=== PATIENT | female | born 1995 | race American Indian/Alaskan Native ===

== ENCOUNTER 2018-05-21 23:50 | Inpatient (IN) | payer MEDICAID ==
[2018-05-22] MEDS ORDERED: XYLOCAINE 2% INFILTRATI ONE ×2 (01:13→03:11)
[2018-05-22] MEDS ORDERED: ZOFRAN IV PRN ×2 (01:13→05:12)
[2018-05-22] MEDS ORDERED: BRETHINE SUB-Q PRN (01:13)
[2018-05-22] MEDS ORDERED: BRETHINE IVP PRN (01:13)
[2018-05-22] MEDS ORDERED: MINERAL OIL PO PRN (01:13)
--- NOTE | 2018-05-22 01:18 | History and Physical Report ---
History of Present Illness Date of examination: 05/22/18 Date of admission: 05/22/18 00:42 Chief complaint: labor History of present illness: Menstrual History Regularity: irregular Duration: 3-4 LMP: 08/24/2017 LMP reliability: definite LMP character: normal test type: urine test Date: 02/24/2018 EDC Calculations LMP: 05/31/2018 EDC Confirmation: 05/31/2018 Gestational Age: 26 2/7 weeks Past History : 2 Term Births: 0 Premature Births: 0 Living Children: 0 Para: 0 Mult. Births: 0 Prev : 0 Prev. attempt? 0 Aborta: 1 Elect. Ab: 1 Spont. Ab: 0 Ectopics: 0 # 1 Weeks Gestation: 14 Comments: EAB D&C Past Medical History: Reviewed history and no changes required: Negative Past Medical History Past Surgical History: Reviewed history and no changes required: D&C: Past Medical History Surgery (Non-ruby software developer): D&C: Abnormal PAP: negative LAYO Exposure: negative Infertility: negative Uterine Anomaly: negative Uterine Surgery (not C/S): negative Other Gynecologic Problems: negative Infection History Hx of STD: none HIV Risk Eval: low risk Hepatitis B Risk Eval: low risk Personal hx. of genital herpes: no Partner hx. of genital herpes: no Rash, Viral, or Febrile illness since last LMP? yes Varicella/Chicken Pox Status: Unknown TB Risk: no Genetic History Congenital Heart Defect: Mom: no Dad: no Cammy Disease: Mom: no Dad: no Thalassemia Mom: no Dad: no Neural Tube Defect Mom: no Dad: no Down's Syndrome Mom: no Dad: no Timothy-Sachs Mom: no Dad: no Sickle Cell Disease/Trait Mom: no Dad: no Hemophilia Mom: no Dad: no Muscular Dystrophy Mom: no Dad: no Cystic Fibrosis Mom: no Dad: no Garrison Chorea Mom: no Dad: no Mental Retardation Mom: no Dad: no Fragile X Mom: no Dad: no Other Genetic/Chromosomal Disorder Mom: no Dad: no Child w/other defect Mom: no Dad: no Enviromental Exposures Xray Exposure: no Medication, drug, or alcohol use since LMP: no Chemical/Other Exposure: no Exposure to Cat Liter: no Hx of Parvovirus (Fifth Disease): no Occupational Exposure to Children: none Active Medications (reviewed today): TABLET ( VIT-FE FUMARATE-FA TABS) Current Allergies (reviewed today): No known allergies Past History Past Medical History: other (see h&p) Past Surgical History: other (see h&p) COMMERCIAL ARTIST History: other (see h&p) Family/Genetic History: other (see h&p) Social history: other (see h&p) - Obstetrical History : 2 Para: 0 Medications and Allergies Allergies Allergy/AdvReac Type Severity Reaction Status Date / Time No Known Allergies Allergy Verified 05/22/18 01:26 Home Medications Medication Instructions Recorded Confirmed Last Taken Type No Known Home Medications [No 05/22/18 05/22/18 Unknown History Reported Home Medications] Review of Systems All systems: negative (strong painful contractions. Denies LOF or vaginal bleeding. +FM) - Vital Signs Vital signs: Vital Signs Pulse BP 71 136/86 05/22/18 00:04 05/22/18 00:04 Temp Pulse Resp BP Pulse Ox 77 136/85 05/22/18 00:35 05/22/18 00:35 - Physical Exam Breasts: Positive: normal Cardiovascular: Regular rate, Normal S1, Normal S2 Lungs: Positive: Clear to auscultation Abdomen: Positive: normal appearance, soft, normal bowel sounds. Negative: distention, tenderness Genitourinary (Female): Positive: normal external genitalia, normal perenium Vulva: both: normal Vagina: Positive: normal moisture. Negative: discharge Cervix: Negative: lesion, discharge Uterus: Positive: normal size, normal contour Adnexa: both: normal Anus/Rectum: Positive: normal perianal skin, heme negative. Negative: rectal mass, hemorrhoids Extremities: Deep Tendon Reflex Grade: Normal +2 - Obstetrical FHR: auscultation normal Uterine Contraction Monitor Mode: External Uterine Contraction Pattern: Regular Uterine Tone Measurement Phase: Contraction Uterine Contraction Intensity: Moderate Results Result Diagrams: 05/22/18 15:01 All other labs normal. Assessment and Plan 23 y.o. IUP at 38w6d presents for active labor 8 cm. Patient desires unmedicated labor and . GBS negative. Category 1 tracing, ctx q 2-45 minutes, palpating moderate to strong. SVE 8/100/-1, IBOW. Admit for labor, routine admission orders. Anticipate vaginal delivery.
[2018-05-22 01:52] LABS: Hematocrit 42.6 % (30.3-42.9); Hemoglobin 14.2 gm/dl (10.1-14.3); Mean Corpuscular HGB Conc 33 % (30-34); Mean Corpuscular Volume 93 fl (79-97); Platelet Count 180 K/mm3 (140-440); Red Blood Count 4.58 M/mm3 (3.65-5.03); Red Cell Distribution Width 13.8 % (13.2-15.2)
[2018-05-22] MEDS ORDERED: LACTATED RINGERS 1,000 ML IV SCH (02:00)
[2018-05-22] MEDS ORDERED: PITOCin/NS 20 UNIT/1000ML DRIP 20 UNITS/1,000 ML BAG IV SCH ×2 (02:00→05:12)
[2018-05-22] MEDS ORDERED: SUBLIMAZE ONE (02:32)
--- NOTE | 2018-05-22 03:08 | Procedure Note ---
OB Delivery Note - Delivery Date of Delivery: 05/22/18 Enterprise Security Architect: DOMO BRANTLEY Estimated blood loss: 300cc - Vaginal Delivery presentation: vertex Delivery position: OA Intrapartum events: meconium (terminal), shoulder dystocia (<15 seconds, resolved with Jocelyn and suprapubic pressure) Delivery induction: none Delivery augmentation: rupture of membranes Delivery monitor: external FHT, external uterine Route of delivery: Delivery placenta: spontaneous Delivery cord: 3 umbilical vessels Episiotomy: none Delivery laceration: 2nd degree Delivery repair: vicryl Anesthesia: local Delivery comments: viable female . Patient delivering without anesthesia or analgesia per request. Mild shoulder dystocia noted after delivery of head GENA position. Request for MD and additional assistance at bedside for delivery, including NICU/Resus team for infant. Anterior shoulder delivered without complication and within approximately 10 seconds with the use of gentle downward traction of the head, Jocelyn and suprapubic pressure maneuvers. Remaining body delivered gradually d/t lack of maternal pushing effort. Infant placed on mother's abdomen, cord clamped x2 and cut by CNM. Terminal meconium noted. Drying and tactile stimulation produces weak intermittent cry. handed off to RN to be assessed by resus team. Placenta delivered spontaneously, complete, intact, with 3VC. Pitocin to IV. Fundal massage yeilds few small clots, but firm with massage. 2nd degree laceration noted, repaired with local lidocaine in the normal fashion. Hemostasis achived. Fundus remains firm. NICU/resus team assign apgars 7/9 and pass infant to FOC to hold while perineal repair is completed. weight 7#10. Mother and infant stable condition in LDR. - A at 1 minute: 7 (7#10) at 5 minutes: 9 Gender: Female
[2018-05-22] MEDS ORDERED: SUBLIMAZE IV ONE (03:11)
[2018-05-22] MEDS ORDERED: IBUPROFEN PO PRN (04:44)
[2018-05-22] MEDS ORDERED: SODIUM CHLORIDE FLUSH SYRINGE 10 ML IV PRN (05:12)
[2018-05-22] MEDS ORDERED: BENADRYL PO PRN (05:12)
[2018-05-22] MEDS ORDERED: DULCOLAX PR PRN (05:12)
[2018-05-22] MEDS ORDERED: TYLENOL PO PRN (05:12)
[2018-05-22] MEDS ORDERED: MILK OF MAGNESIA PO PRN (05:12)
[2018-05-22] MEDS ORDERED: TUCKS PAD TP PRN (05:12)
[2018-05-22] MEDS ORDERED: PHENERGAN PO PRN (05:12)
[2018-05-22] MEDS: PRENATAL VITAMIN PO SCH (11:27)
[2018-05-22] MEDS: COLACE PO SCH (11:27)
[2018-05-22] MEDS: LANSINOH TP PRN (11:28)
[2018-05-22] MEDS: IBUPROFEN PO SCH ×2 (12:35→18:50)
[2018-05-22 15:58] LABS: Hematocrit 30.2 % (30.3-42.9); Hemoglobin 10.2 gm/dl (10.1-14.3)
[2018-05-23] MEDS: COLACE PO SCH ×2 (04:33→10:00)
[2018-05-23] MEDS: IBUPROFEN PO SCH ×2 (04:34→13:00)
--- NOTE | 2018-05-23 07:38 | Discharge Summary ---
Providers - Providers Date of Admission: 05/22/18 00:42 Date of discharge: 05/23/18 (pt desires d/c; will get [facility] w/u prior to d/c) Attending physician: SUKUMAR MARTINEZ Primary care physician: SUKUMAR MARTINEZ Hospitalization Reason for admission: active labor Delivery: Episiotomy: none Laceration: none Incision: normal Other procedures: none complications: other (pt has had rare elevated BPs [facility] w/u ordered for this AM) Discharge diagnosis: IUP at term delivered Plan - Provider Discharge Summary Additional instructions: [] Smoking cessation referral if applicable(refer to patient education folder for contact #) [] Refer to [facility]'s [facility] Booklet Call your doctor immediately for: * Fever > 100.5 * Heavy vaginal bleeding ( >1 pad per hour) * Severe persistent headache * Shortness of breath * Reddened, hot, painful area to leg or breast * Drainage or odor from incision. * Keep incision clean and dry at all times and follow doctor's instructions regarding bathing/showering - Follow up plan Follow up: SUKUMAR MARTINEZ MD [Primary Care Provider] - 7 Days
--- NOTE | 2018-05-23 07:43 | Discharge Summary ---
Providers - Providers Date of Admission: 05/22/18 00:42 Date of discharge: 05/23/18 (pt desires d/c) Attending physician: SUKUMAR MARTINEZ Primary care physician: SUKUMAR MARTINEZ Hospitalization Reason for admission: active labor Delivery: Episiotomy: none Laceration: 2nd degree Incision: normal, dry, intact Other procedures: none complications: none Discharge diagnosis: IUP at term delivered baby: female Hospital course: uncomplicated vaginal delivery Pt w/o complaint Desires d/c today VSS FF below umb Lochia scant Perineum slight swelling intact H&H 01/04 no s/sx of anemia Drop is r/t blood loss from delivery Doing well s/p vag delivery P: d/c today with instructions RTO 4 weeks PP care Condition at discharge: Good Disposition: DC-01 TO HOME OR SELFCARE - Discharge Diagnoses (1) Normal spontaneous vaginal delivery Status: Acute Comment: RTO 4 weeks PP care Plan - Provider Discharge Summary Activity: routine, no sex for 6 weeks, no heavy lifting 4 weeks, no strenuous exercise Diet: routine Instructions: routine Additional instructions: [] Smoking cessation referral if applicable(refer to patient education folder for contact #) [] Refer to [facility]'s [facility] Booklet Call your doctor immediately for: * Fever > 100.5 * Heavy vaginal bleeding ( >1 pad per hour) * Severe persistent headache * Shortness of breath * Reddened, hot, painful area to leg or breast * Drainage or odor from incision. * Keep incision clean and dry at all times and follow doctor's instructions regarding bathing/showering - Follow up plan Follow up: SUKUMAR MARTINEZ MD [Primary Care Provider] - 06/22/18 (Congratulations! Please call [phone] to schedule your visit in 4 weeks. Call with headache, not relieved with Tylenol, blurred vision, chest pain. Motrin/ibuprofen for cramping/pain. Call with concerns.)
[2018-05-23] MEDS: PRENATAL VITAMIN PO SCH (10:00)
[2018-05-23] MEDS: LANSINOH TP PRN (17:00)
[2018-05-23 18:50] VITALS: BP 126/72
== END 2018-05-23 18:00 | disposition home or self-care (01) | DRG 775 ==
LOC: TRG 23:50 → LD 05-22 00:42 → OB 05-22 05:10
PROVIDERS: ADMIT Obstetrics & Gynecology; ATTEND Obstetrics & Gynecology
PROC: 10E0XZZ Delivery of Products of Conception, External Approach (ICD-10-PCS; principal; 2018-05-22)
PROC: 0KQM0ZZ Repair Perineum Muscle, Open Approach (ICD-10-PCS; 2018-05-22)
DX: O77.0 Labor and delivery complicated by meconium in amniotic fluid (principal); O70.1 Second degree perineal laceration during delivery; Z37.0 Single live birth; O66.0 Obstructed labor due to shoulder dystocia; Z3A.38 38 weeks gestation of pregnancy
CPT/HCPCS: 36415; 85014; 85018; 85027; 86592; 86762; 86850; 86900; 86901; G0378; A6250; J2590; J3010; J7120